=== PATIENT | female | born 1940 | race Caucasian/White ===

== ENCOUNTER 2017-04-25 05:53 | Inpatient (IN) | payer OTHER ==
[2017-04-21 12:22] VITALS: BMI 47.5
--- NOTE | 2017-04-24 09:05 | HP ---
[facility]ellite [facility] - Chief Complaint Chief Complaint: right hip pain - Past Medical History Allergies/Adverse Reactions: Allergies Allergy/AdvReac Type Severity Reaction Status Date / Time Penicillins Allergy Swelling Verified 04/21/17 12:08 - Current Medications Current Medications: Home Medications Medication Instructions Recorded Carvedilol [Coreg -] 12.5 mg PO BID 11/09/15 Levothyroxine [Synthroid -] 50 mcg PO DAILY 11/09/15 Atorvastatin Ca [Lipitor] 40 mg PO DAILY 04/21/17 Cholecalciferol (Vitamin D3) 1,000 unit PO DAILY 04/21/17 [Vitamin D3] Clopidogrel Bisulfate [Plavix] 75 mg PO DAILY 04/21/17 Famotidine [Pepcid -] 40 mg PO DAILY 04/21/17 Lisinopril 5 mg PO DAILY 04/21/17 Satellite Physical Exam - Physical Examination General Appearance: Well Nourished, Well Developed, Alert & Oriented x3 ENT: Clear Lung: Normal air movement Heart: Regular rate & rhythm Extremities: Other (right hip- + ttp, dec rom, nvi xrays show grade 4 hip djd) Neurological: Intact, Alert, Oriented Satellite Impression/Plan - Impression/Plan Impression: right hip djd Operative Procedure: right minda thr Date to be Performed: 04/25/17
[2017-04-25] MEDS ORDERED: TRANEXAMIC ACID 1000 MG/10 ML VIAL IVPUSH ONE (06:15)
[2017-04-25] MEDS ORDERED: CEFAZOLIN 2 GM in DEXTROSE 5%-WATER - 50 ML IVPB ONE (06:15)
[2017-04-25] MEDS: CELECOXIB 200 MG CAPSULE PO ONE (06:45)
[2017-04-25] MEDS: GABAPENTIN 300 MG CAPSULE (FP) PO ONE (06:45)
[2017-04-25] MEDS: oxyCODONE HCL 10 MG SUSTAINED ACTING TABLET PO ONE (06:45)
[2017-04-25] MEDS ORDERED: VANCOMYCIN 1,000 MG VIAL (RESTRICTED TO ID ONLY) ONE (07:15)
[2017-04-25] MEDS ORDERED: ceFAZolin SODIUM 1 GM VIAL ONE ×2 (07:15→08:37)
[2017-04-25] MEDS ORDERED: MIDAZOLAM HCL 2 MG/2 ML SINGLE DOSE VIAL ONE (07:45)
[2017-04-25] MEDS ORDERED: PROPOFOL 20 ML ONE ×2 (08:09)
[2017-04-25] MEDS ORDERED: ROCURONIUM BROMIDE 50 MG/5 ML VIAL ONE (08:09)
[2017-04-25] MEDS ORDERED: LIDOCAINE HCL 2% 100 MG/5 ML DISP.SYRIN ONE (08:21)
[2017-04-25] MEDS ORDERED: ONDANSETRON 4 MG/2 ML VIAL ONE (08:39)
[2017-04-25] MEDS ORDERED: DEXAMETHASONE SOD PHOSPHATE 4 MG/1 ML VIAL ONE (08:39)
[2017-04-25] MEDS ORDERED: NEOSTIGMINE METHYLSULFATE 0.5 MG/ML - 10 ML MDV ONE (09:31)
[2017-04-25] MEDS ORDERED: GLYCOPYRROLATE 0.2 MG/1 ML VIAL ONE (09:32)
[2017-04-25] MEDS ORDERED: SUCCINYLCHOLINE CHLORIDE 200 MG/10 ML VIAL ONE (09:39)
[2017-04-25] MEDS ORDERED: ONDANSETRON 4 MG/2 ML VIAL IVPUSH PRN (09:57)
[2017-04-25] MEDS ORDERED: MAGNESIUM HYDROX 2400MG/30ML ORAL SUSPENSION 30 ML CUP PO PRN (09:57)
[2017-04-25] MEDS ORDERED: MAG HYDROX/AL HYDROX/SIMETH 30 ML UNIT-DOSE CUP PO PRN (09:57)
[2017-04-25] MEDS ORDERED: BACITRACIN 15 GM TUBE TOPICAL OINTMENT ONE (09:59)
--- NOTE | 2017-04-25 09:59 | OP ---
Operative Note - Note: Operative Date: 04/25/17 (kael) Pre-Operative Diagnosis: right hip djd Operation: right minda thr Post-Operative Diagnosis: Same as Pre-op Surgeon: Abimael Quiroz Loan Teller: Keith Neves Anesthesiologist/TEST DESIGNER: Nieves Pack Anesthesia: General, Local Specimens Removed: femoral head Estimated Blood Loss (mls): 250 Operative Report Dictated: Yes
[2017-04-25] MEDS ORDERED: PANTOPRAZOLE 40 MG TABLET (FP) PO SCH (10:00)
[2017-04-25] MEDS ORDERED: LACTATED RINGERS SOLUTION 1,000 ML IV SCH (10:00)
[2017-04-25] MEDS ORDERED: ATORVASTATIN CA 40 MG TABLET (FP) PO SCH (10:00)
[2017-04-25] MEDS ORDERED: oxyCODONE HCL 5 MG TABLET PO PRN (10:19)
[2017-04-25] MEDS: ACETAMINOPHEN 325 MG TABLET (FP) PO SCH ×2 (11:20→17:37)
[2017-04-25] MEDS: CEFAZOLIN 2 GM/D5W 2 GM/50 ML ML IVPB SCH (16:00)
--- NOTE | 2017-04-25 19:32 | SPEC ---
DATE OF OPERATION: 04/25/2017 PREOPERATIVE DIAGNOSIS: Degenerative joint disease right hip. POSTOPERATIVE DIAGNOSIS: Degenerative joint disease right hip. PROCEDURE PERFORMED: Right total hip replacement with robotic-assisted navigation (MAKOplasty). SURGICAL ATTENDING: Abimael Quiroz MD COMMISSIONER OF INTERNAL REVENUE: RAFI Escalera ANESTHESIA: Regional and spinal. CLOSURE: A number 5 Accolade Press-Fit femoral stem, a 0 MDM head, and a 48 titanium Press-Fit acetabulum. Number 1 Vicryl for fascia, 0 and 2-0 subcutaneous, 3-0 Monocryl subcuticular for skin with skin glue, 4-0 undyed Vicryl for pin sites. ESTIMATED BLOOD LOSS: 100 mL. COMPLICATIONS: None. CONDITION: To the recovery room in stable condition. DESCRIPTION OF PROCEDURE: The patient was taken to the operating room on April 25, 2017. General and regional anesthesia was administered by the anesthesiologist. IV Kefzol and TXA were administered prophylactically prior to the case. The patient was placed in the lateral decubitus position will all prominences well-padded. The right hip area was prepped and draped in the usual sterile fashion. Using 3 small stab incisions over the iliac crest, 3 threaded pins were drilled in power fashion through the 2 tables of the crest. These pins were fastened and the navigation array for the Raza navigation system. Next, a 12 to 15-cm curved longitudinal incision over the posterolateral aspect of the greater trochanter was incised. Hemostasis was achieved with Bovie cautery. Sharp dissection was carried down to level of the fascia. The fascia was opened the entire length of the incision, spreading the fibers of the gluteus andrew in the direction of origin. A Charnley retractor was placed in this layer. Care was taken not to impale the sciatic nerve. The short external rotators were detached off the insertion of the greater trochanter and peeled off the capsule. A posterior capsulotomy was then performed. A check point was malleted into the greater trochanter and a point on the inferior pole of the patella was obtained as well. These 2 points were used to assess the preoperative offset and limb lengths of the hip. The hip was then dislocated. The femoral neck was then osteotomized down to the appropriate level as directed by the navigation device. Anterior and posterior retractors were placed, exposing the acetabulum. A circumferential labral excision was performed. A check point was malleted into the acetabulum as well. Multiple sites inside the acetabulum and around the rim were utilized to register the acetabulum with the navigation device. An excellent registration of less than 0.5 mm was obtained. The hip was then reamed with the appropriate reamer down to the appropriate depth, with the appropriate orientation and version as assessed on our preoperative plan for this patient. The reamer was removed and the acetabulum was inspected to have good bleeding surfaces throughout. The real acetabular cup was then malleted down into place, with the holes in the appropriate position, until an excellent fixation was obtained. No screws were necessary. The navigation device ensured appropriate orientation and version, with the depth as predetermined. The appropriate liner was then clipped into place. Attention was directed to the femur. The proximal femur was prepared by use a box chisel, a canal finder and serial broaches until the broach achieved excellent rigidity in the proximal femur with the appropriate version being applied. A calcar planer was used to smooth off the calcar flush with the trial components. A trial reduction with the appropriate head was done, and the hip was reduced. The hip was taken through a range of motion from full extension with external rotation to marked flexion, and was stable at 90 degrees of flexion. It was stable to marked abduction and internal rotation, with a positive hang test and negative telescoping. Limb lengths were ascertained visually as well as with the navigation device to be within the targeted range for this patient. The trial component was removed. The real component was then malleted into place. The head was cold welded to the trunnion, and the hip was reduced. Range of motion, stability and limb lengths were as described in the trial component. Then the hip was pulse antibiotic irrigated. Vancomycin powder was placed in the hip joint. The capsule was closed. The fascia was then closed as well using number 1 Vicryl interrupted suture, 0 and 2-0 subcutaneous, and 3-0 V-Loc for the skin. 4-0 undyed Vicryl was used to close the pin sites after the pins were removed. All check points were also removed. Sterile Aquacel dressing was applied. The patient was awakened from anesthesia and transferred into the supine position. Bilateral SCDs and an abduction pillow were placed. X-rays revealed excellent position of the components. The patient was transferred to the recovery room in stable condition, with no complications. Estimated blood loss was less than 100 mL. Yolanda [id number]
[2017-04-25] MEDS: SENNOSIDES/DOCUSATE COMBO (SENNA PLUS) TABLET (UD) PO SCH ×2 (21:39→22:11)
[2017-04-25] MEDS: ATORVASTATIN CA 40 MG TABLET (FP) PO SCH (21:39)
[2017-04-25] MEDS: CARVEDILOL 12.5 MG TABLET (FP) PO SCH (21:40)
[2017-04-26] MEDS: ACETAMINOPHEN 325 MG TABLET (FP) PO SCH ×4 (00:12→17:27)
[2017-04-26] MEDS: CEFAZOLIN 2 GM/D5W 2 GM/50 ML ML IVPB SCH (00:13)
[2017-04-26] MEDS: oxyCODONE HCL 5 MG TABLET PO PRN ×4 (02:37→16:41)
[2017-04-26] MEDS: LEVOTHYROXINE NA 50 MCG TABLET (FP) PO SCH (06:28)
[2017-04-26] MEDS: GABAPENTIN 300 MG CAPSULE (FP) PO ONE (07:09)
[2017-04-26] MEDS: oxyCODONE HCL 10 MG SUSTAINED ACTING TABLET PO ONE (07:09)
[2017-04-26] MEDS: CELECOXIB 200 MG CAPSULE PO ONE (07:09)
[2017-04-26] MEDS: FAMOTIDINE 20 MG TABLET PO SCH ×2 (07:10→09:05)
[2017-04-26] MEDS: LISINOPRIL 5 MG TABLET (FP) PO SCH ×2 (07:10→09:06)
[2017-04-26] MEDS: MULTIVITAMINS (DAILY MVI) TABLET (FP) PO SCH ×2 (07:28→09:05)
[2017-04-26] MEDS: ASPIRIN 81 MG CHEWABLE TABLETS PO SCH (08:13)
[2017-04-26] MEDS: CLOPIDOGREL BISULFATE 75 MG TABLET (FP) PO SCH (08:14)
--- NOTE | 2017-04-26 08:16 | PN ---
Progress Note (short form) - Note Progress Note: Ortho Pt seen and examined s/p right minda thr pod #1 Selected Entries 04/26/17 05:00 Temperature 98.1 F Pulse Rate 80 Respiratory 20 Rate Blood Pressure 126/66 Laboratory Tests 04/26/17 07:50 WBC Pending Hgb Pending Hct Pending Plt Count Pending dressing c/d/i,calf soft, nt nvi a/p PT hip precautions resume plavix and ASA pain control d/c home tomorrow if stable
[2017-04-26 08:29] LABS: HEMATOCRIT 32.4 % (32.4-45.2); HEMOGLOBIN 10.4 GM/dl (10.7-15.3); MCH 31.5 pg (25.7-33.7); MCHC 32.1 g/dl (32.0-36.0); MEAN CELL VOLUME 98.1 fl (80-96); MEAN PLT VOLUME 8.8 fl (7.5-11.1); PLATELET COUNT 201 K/MM3 (134-434); WHITE BLOOD COUNT 10.5 K/mm3 (4.0-10.8)
[2017-04-26] MEDS: CARVEDILOL 12.5 MG TABLET (FP) PO SCH ×2 (09:05→21:08)
[2017-04-26] MEDS: SENNOSIDES/DOCUSATE COMBO (SENNA PLUS) TABLET (UD) PO SCH ×2 (09:05→21:08)
[2017-04-26] MEDS: ATORVASTATIN CA 40 MG TABLET (FP) PO SCH (21:08)
[2017-04-27] MEDS: ACETAMINOPHEN 325 MG TABLET (FP) PO SCH ×3 (00:09→12:28)
[2017-04-27] MEDS: LEVOTHYROXINE NA 50 MCG TABLET (FP) PO SCH (06:02)
[2017-04-27] MEDS: oxyCODONE HCL 5 MG TABLET PO PRN ×2 (06:03→12:29)
--- NOTE | 2017-04-27 08:00 | PN ---
Progress Note (short form) - Note Progress Note: Ortho Pt seen and examined s/p right minda thr pod #2 Selected Entries 04/27/17 06:00 Temperature 97.8 F Pulse Rate 90 Respiratory 18 Rate Blood Pressure 85/52 Laboratory Tests 04/26/17 07:50 WBC 10.5 Hgb 10.4 L Hct 32.4 Plt Count 201 dressing c/d/i,calf soft, nt nvi a/p PT hip precautions resume plavix and ASA pain control d/c home today f/u in 1 week
--- NOTE | 2017-04-27 08:01 | DS ---
Physical Examination Vital Signs: Vital Signs Temperature 97.8 F 04/27/17 06:00 Pulse Rate 90 04/27/17 06:00 Respiratory Rate 18 04/27/17 06:00 Blood Pressure 85/52 04/27/17 06:00 O2 Sat by Pulse Oximetry (%) 100 04/26/17 22:00 Discharge Summary Reason For Visit: OSTEOARTHRITIS Procedures: Principal: s/p right minda thr Hospital Course: admitted for elective right minda thr, uneventful post-op, stable for d/c Condition: Good - Instructions Diet, Activity, Other Instructions: Post-op Instructions-Total Hip Replacement Call the office for a follow-up appointment in 1 week - [phone] Aspirin 325mg daily for 6 weeks. Pain medication was sent into your pharmacy. Apply Graduated Compression Stockings (TEDs) to both lower extremities- remove daily for hygiene ONLY Apply Sequential Compression Device (SCDs) to both Lower extremities remove for PT and hygiene ONLY Apply cold packs to affected area for 15 minutes every 2 hours. Physical Therapist will come to your home for the first 5 days. You will be set up with outpatient PT at your first post-operative visit. Patient may ambulate as tolerated-encourage self care (at least every 2-3 hours while awake) with walker or cane Maintain Aquacel (waterproof) dressing to operative wound (will be removed by surgeon at first office visit) Shower with Aquacel dressing in place-if Aquacel integrity compromised, remove and apply dry sterile dressing and notify Orthopedist. DO NOT SHOWER unless Orthopedists approves without Aquacel dressing CONTACT THE OFFICE FOR ANY CHANGE IN YOUR CONDITION (for example-fever greater than 102 degrees, excessive bleeding from operative site, purulent drainage, severe swelling or pain) GO TO THE EMERGENCY ROOM IF THERE IS A MEDICAL EMERGENCY Hip Precautions: * Keep a rolled towel under affected heel while in bed or chair (to keep knee in extension) * Dependent upon approach: * Posterior - do not cross legs; do not sit on low chairs or toilets. * If you have any questions, please do not hesitate to call the office - . Referrals: Abimael Quiroz MD [Staff Physician] - Disposition: [facility]/HOME HEALTH CARE - Home Medications Comprehensive Discharge Medication List: Ambulatory Orders Carvedilol [Coreg -] 12.5 mg PO BID 11/09/15 Levothyroxine [Synthroid -] 50 mcg PO DAILY 11/09/15 Atorvastatin Ca [Lipitor] 40 mg PO DAILY 04/21/17 Cholecalciferol (Vitamin D3) [Vitamin D3] 5,000 unit PO WEEKLY 04/21/17 Clopidogrel Bisulfate [Plavix] 75 mg PO DAILY 04/21/17 Famotidine [Pepcid -] 40 mg PO DAILY 04/21/17 Lisinopril 5 mg PO DAILY 04/21/17 Aspirin [ASA -] 81 mg PO DAILY 04/25/17 Oxycodone HCl/Acetaminophen [Percocet 5-325 mg Tablet] 1 - 2 tab PO Q6H #50 tab MDD 8 04/25/17
[2017-04-27 08:17] LABS: HEMATOCRIT 28.2 % (32.4-45.2); HEMOGLOBIN 9.2 GM/dl (10.7-15.3); MCH 32.5 pg (25.7-33.7); MCHC 32.5 g/dl (32.0-36.0); MEAN CELL VOLUME 99.9 fl (80-96); MEAN PLT VOLUME 8.8 fl (7.5-11.1); PLATELET COUNT 178 K/MM3 (134-434); RBC 2.83 M/mm3 (3.60-5.2); RDW 14.6 % (11.6-15.6); WHITE BLOOD COUNT 11.6 K/mm3 (4.0-10.8)
[2017-04-27] MEDS: CLOPIDOGREL BISULFATE 75 MG TABLET (FP) PO SCH (09:01)
[2017-04-27] MEDS: ASPIRIN 81 MG CHEWABLE TABLETS PO SCH (09:01)
[2017-04-27] MEDS: MULTIVITAMINS (DAILY MVI) TABLET (FP) PO SCH (09:12)
[2017-04-27] MEDS: LISINOPRIL 5 MG TABLET (FP) PO SCH (09:12)
[2017-04-27] MEDS: SENNOSIDES/DOCUSATE COMBO (SENNA PLUS) TABLET (UD) PO SCH (09:12)
[2017-04-27] MEDS: FAMOTIDINE 20 MG TABLET PO SCH (09:12)
[2017-04-27] MEDS: CARVEDILOL 12.5 MG TABLET (FP) PO SCH (09:13)
[2017-04-27 14:21] VITALS: BP 110/68; PULSE 85; TEMP 98
--- NOTE | 2017-04-28 15:45 | PATH ---
Surgical Pathology Report Patient Name: RACHEL CROCKETT Med. Rec. #: [id number] /Age/Gender: 1940 (Age: 76) / F Account: [id number] Location: [facility] MED-SURG Taken: 04/25/2017 Received: 04/25/2017 Reported: 04/28/2017 Physicians: Abimael Quiroz M.D. Specimen(s) Received RIGHT FEMORAL HEAD Clinical History Right hip osteoarthritis Final Diagnosis BONE, RIGHT FEMORAL HEAD, REPLACEMENT: DEGENERATIVE JOINT DISEASE. Electronically Signed Deuce Soares M.D. Gross Description Received in formalin, labeled "right femoral head," is a 4.0 x 4.0 x 3.8 cm. femoral head with a 0.6 cm in length portion of femoral neck attached. The margin of resection is smooth. There is a 2.6 cm greatest dimension area of eburnation present. The remaining articular surface is johnson-yellow and diffusely granular. The underlying trabecular bone is yellow and hard. A security representative section is submitted in one cassette, following decalcification. 04/27/201704/27/2017
== END 2017-04-27 16:00 | disposition home health service (06) | DRG 470 ==
LOC: FM/S 05:53
PROVIDERS: ADMIT Orthopaedic Surgery; ATTEND Orthopaedic Surgery
PROC: 8E0Y0CZ Robotic Assisted Procedure of Lower Extremity, Open Approach (ICD-10-PCS; 2017-04-25)
PROC: 0SR902A Replacement of Right Hip Joint with Metal on Polyethylene Synthetic Substitute, Uncemented, Open Approach (ICD-10-PCS; principal; 2017-04-25 08:43)
DX: M16.11 Unilateral primary osteoarthritis, right hip (principal)
CPT/HCPCS: 36415; 73502-TC-RT; 85027; 88304-TC; 88311-TC; 94010; 94760; 97116-GP; 97162-GP

== ENCOUNTER 2018-11-14 06:03 | Day surgery (SDC) | payer OTHER ==
[2018-11-12 11:26] VITALS: BMI 47.5
[~2018-11-14 06:03] MED LIST: ACETAMINOPHEN 325 MG TABLET (FP) PO PRN
[2018-11-14] MEDS ORDERED: CYCLOPENTOLATE HCL 1% OPHTH SOLN 2 ML BOTTLE ONE (06:14)
[2018-11-14] MEDS ORDERED: OFLOXACIN 0.3% OPHTHALMIC SOLUTION 5 ML BOTTLE ONE (06:14)
[2018-11-14] MEDS ORDERED: PHENYLEPHRINE 2.5% OPHTH SOLN 15 ML BOTTLE ONE (06:15)
[2018-11-14] MEDS ORDERED: KETOROLAC TROMETHAMINE 0.5% EYE DROP 1 DROP DROPS ONE (06:15)
[2018-11-14] MEDS ORDERED: TROPICAMIDE 1% OPHTH SOLN 15 ML BOTTLE ONE (06:15)
[2018-11-14] MEDS: TROPICAMIDE 1% OPHTH SOLN 15 ML BOTTLE OP SCH ×3 (06:30→06:40)
[2018-11-14] MEDS: OFLOXACIN 0.3% OPHTHALMIC SOLUTION 5 ML BOTTLE OP SCH ×3 (06:30→06:40)
[2018-11-14] MEDS: CYCLOPENTOLATE HCL 1% OPHTH SOLN 2 ML BOTTLE OP SCH ×3 (06:30→06:40)
[2018-11-14] MEDS: KETOROLAC TROMETHAMINE 0.5% EYE DROP 1 DROP DROPS OP SCH ×3 (06:30→06:40)
[2018-11-14] MEDS: PHENYLEPHRINE 2.5% OPHTH SOLN 15 ML BOTTLE OP SCH ×3 (06:30→06:40)
[2018-11-14 06:42] VITALS: TEMP 98.2
[2018-11-14] MEDS ORDERED: EPINEPHrine/PF 1 MG/1 ML (1:1,000) AMPULE ONE (07:28)
[2018-11-14] MEDS ORDERED: WATER FOR INJ,STERILE 10 ML ONE (07:29)
[2018-11-14] MEDS ORDERED: POVIDONE-IODINE 5% OPHTHALMIC PREP 30 ML SOLUTION ONE (07:29)
[2018-11-14] MEDS ORDERED: TETRACAINE 0.5% OPHTH SOLN 2 ML BOTTLE ONE (07:29)
[2018-11-14] MEDS ORDERED: TRYPAN BLUE 0.5 ML DISP.SYRIN ONE (07:29)
[2018-11-14] MEDS ORDERED: VANCOMYCIN 500 MG VIAL (RESTRICTED TO ID ONLY) ONE (07:29)
[2018-11-14] MEDS ORDERED: LIDOCAINE HCL/PF 1% SDV 5ML VIAL ONE (07:33)
[2018-11-14] MEDS ORDERED: CHONDROITIN SU A/HYALUR SOD 1 KIT ONE (07:40)
[2018-11-14] MEDS ORDERED: MIDAZOLAM HCL 2 MG/2 ML SINGLE DOSE VIAL ONE (08:04)
[2018-11-14] MEDS ORDERED: TETRACAINE 0.5% OPHTH SOLN 2 ML BOTTLE OS ONE (08:10)
[2018-11-14] MEDS ORDERED: POVIDONE-IODINE 5% OPHTHALMIC PREP 30 ML SOLUTION OS ONE (08:15)
[2018-11-14] MEDS ORDERED: LIDOCAINE HCL 1% PRESERVATIVE FREE - 30ML VIAL IJ ONE (08:18)
[2018-11-14] MEDS ORDERED: BSS (NA/CA/MG/K) BALANCED SALT SOLUTION OPHTH SOLN 15 ML BOTTLE OS ONE (08:18)
[2018-11-14] MEDS ORDERED: EPINEPHrine/PF 1 MG/1 ML (1:1,000) AMPULE SQ ONE (08:18)
[2018-11-14] MEDS ORDERED: CHONDROITIN SU A/HYALUR SOD 1 KIT IO ONE (08:24)
--- NOTE | 2018-11-14 09:14 | SPEC ---
DATE OF OPERATION: 11/14/2018 PREOPERATIVE DIAGNOSIS: Cataract, left eye. POSTOPERATIVE DIAGNOSIS: Cataract, left eye. PROCEDURE: Phacoemulsification of left cataract with posterior chamber intraocular lens implantation. Lens used [id number], 19.5 diopter power, serial No. [id number]. SURGEON: Belle Cifuentes M.D. ANESTHESIA: Topical MAC. COMPLICATIONS: None. DESCRIPTION OF PROCEDURE: The patient was brought to the operating room and correctly identified along with the operative site and the correct intraocular lens maki. The patient was then prepped and draped in the usual sterile fashion including 5% Betadine solution in the conjunctival sac and an eyelid drape. An eyelid speculum was then placed in the eye. A paracentesis port was created and approximately 0.5 mL of preservative free Lidocaine was then injected into the eye. Viscoelastic was then injected to inflate the anterior chamber. A temporal clear corneal wound was created. A continuous circular capsulorrhexis was performed. The nucleus was then hydrodissected with BSS and removed with phacoemulsification. The remaining cortical material was irrigated and aspirated. Viscoelastic was injected to inflate the capsular bag and the intraocular lens was then implanted into the capsular bag. The remaining Viscoelastic was irrigated and aspirated from the eye. The IOL was noted to be well centered and completely covered by the anterior capsulorrhexis. Topical vancomycin was placed and the eye patched and shielded. All wounds were tested and found to be watertight. No suture was placed. The eye was then shielded. The patient was then discharged from the operating room in stable condition. BELLE CIFUENTES M.D. [id number]
[2018-11-14 10:37] VITALS: BP 135/89; PULSE 86
== END 2018-11-14 10:00 | disposition home or self-care (01) ==
LOC: JASU-SURG 06:03
PROVIDERS: ATTEND Ophthalmology
PROC: 08RK3JZ Replacement of Left Lens with Synthetic Substitute, Percutaneous Approach (ICD-10-PCS; principal; 2018-11-14 08:00)
DX: H26.9 Unspecified cataract (principal)